=== PATIENT | female | born 1985 | race Caucasian/White ===

== ENCOUNTER 2021-03-19 14:25 | Outpatient (REF) | payer SELFPAY ==
[2021-03-23 08:52] LABS: COVID-19 RT-PCR UVMMC Result Negative (Negative)
== END 2021-03-19 14:26 | disposition home or self-care (01) ==
LOC: LBN 14:25
PROVIDERS: PCP Nurse Practitioner Family; Visit Provider Physician Assistant
DX: Z20.822 Contact with and (suspected) exposure to COVID-19 (principal)
CPT/HCPCS: U0003